=== PATIENT | female | born 1985 | race Caucasian/White ===

== ENCOUNTER → 2018-05-31 07:43 | Outpatient (CLI) | payer OTHER, SELFPAY ==
[2018-05-31 08:38] LABS: Hematocrit 41.3 % (36-46); Hemoglobin 13.6 g/dL (12.0-16.0); Mean Corpuscular HGB Conc 32.9 % (30-36); Mean Corpuscular Hemoglobin 27.3 PG (26-34); Mean Corpuscular Volume 82.9 fL (80-100); Platelet Count 285 X10^3/uL (150-400); Red Blood Cell Count 4.99 X10^6/uL (4.0-5.2); Red Cell Distribution Width 13.4 % (11.6-14.8); White Blood Cell Count 10.6 X10^3/uL (4.5-11.0)
[2018-05-31 09:00] LABS: Hemoglobin A1C% w Est Avg Glu 5.1 % (4.0-6.0)
[2018-05-31 09:17] LABS: Alanine Aminotransferase 18 IU/L (9-52); Albumin 4.3 g/dL (3.5-5.0); Albumin Globulin Ratio 1.3 (1.0-2.8); Alkaline Phosphatase 61 U/L (38-126); Aspartate Aminotransferase 17 IU/L (14-36); Bilirubin Total 0.3 mg/dL (0.2-1.3); Blood Urea Nitrogen 12 mg/dL (7-17); Carbon Dioxide 24 mmol/L (22-32); Chloride 104 mmol/L (98-107); Cholesterol 249 mg/dL (140-199); Estimated Glomerular Filt Rate > 60.0 mL/min (>60); Globulin 3.3 g/dL (1.7-4.1); Glucose 89 mg/dL (70-100); HDL Cholesterol 55 mg/dL (40-60); HEMOLYSIS < 15 (0-50); LDL Cholesterol Calculated 157 mg/dL (<100); Potassium 3.8 mmol/L (3.4-5.1); Sodium 138 mmol/L (137-145); Total Protein 7.6 g/dL (6.3-8.2); Triglycerides 184 mg/dL (35-150)
[2018-05-31 09:42] LABS: TSH w/ Reflex to FT4 1.43 uIU/mL (0.47-4.68)
== END ==
PROVIDERS: Visit Provider Nurse Practitioner Family
DX: Z00.00 Encounter for general adult medical examination without abnormal findings (principal); Z68.35 Body mass index [BMI] 35.0-35.9, adult
CPT/HCPCS: 36415; 80053; 80061; 83036; 84443; 85027

== ENCOUNTER → 2018-06-23 13:49 | Outpatient (CLI) | payer OTHER, SELFPAY ==
--- NOTE | 2018-06-27 14:42 | DIET.PN ---
Met for an initial consultation. Jonelle is interested in losing weight. Is 9 mo post and had gained to an undesirable wt prior to . Reports hx of being on statin drugs for high cholesterol. Discontinued those with [facility] and doesn't want to restart. Is hoping wt loss will help improve blood lipids. Usual Diet: 3 meals daily plus couple snacks. Tries not to eat after dinner. Tries to choose foods from all food groups. 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 Walks 3x/week: a couple times on weekdays (approx 1/2 hr) with longer walk on weekends with . Like to walk the [place]. Dx: obesity Ht: 63.5 Wt: 200# BMI: 35 Wt at delivery: 220# Wt goal: 150# Assessment: Diet appears fairly well balanced with some extras in form of snacks. Biggest obstacle appears to be not enough exercise. Intervention: Provided ed on strategies for wt loss, on portioning control using healthy plate method and importance of exercise for wt control Plan: Encouraged to increase walking with goal of approx 1/2 hour mod exercise 5 days/week. Use plate method for portioning and nutritional balance. F/U in couple weeks.
== END ==
PROVIDERS: Visit Provider Nurse Practitioner Family
DX: E66.01 Morbid (severe) obesity due to excess calories (principal)
CPT/HCPCS: 97802

== ENCOUNTER → 2018-07-07 09:56 | Outpatient (CLI) | payer OTHER, SELFPAY ==
--- NOTE | 2018-07-07 10:44 | DIET.PN ---
Met for f/u. Jonelle brought a week's worth of food records. Meals improved through the week w/fewer snacks and more well balanced meals modeling healthy plate portions. Still has more carbs/ simple carbs than desired, but has incorperated more non-starchy vegs, lean meats. Dx: Morbid obesity Wt 197# BMI 34 Assessment: Down 3# in 2 weeks. Food choices improving, though still more extras than desired. Continues to keep exercise up - approx 5x/wk. Will be facing some new challenges with moving to [place] soon. Intervention: Critiqued Jonelle's food record for better vs poorer choices. Provided education on meal planning, writing weekly menus, planning ahead which may be even more critical during their move and once settled in [place] with a longer commute to work. Plan: May call for f/u. At this time feels too busy with pending move to [facility].
== END ==
PROVIDERS: Visit Provider Nurse Practitioner Family
DX: E66.01 Morbid (severe) obesity due to excess calories (principal)
CPT/HCPCS: 97803

== ENCOUNTER → 2018-08-22 17:30 | Outpatient (CLI) | payer OTHER, SELFPAY | PROVIDERS: Visit Provider Physician Assistant | DX: R30.0 Dysuria (principal) | CPT/HCPCS: 87210 ==

== ENCOUNTER → 2018-08-30 07:19 | Outpatient (CLI) | payer OTHER, SELFPAY ==
[2018-08-30 09:06] LABS: Cholesterol 278 mg/dL (140-199); HDL Cholesterol 54 mg/dL (40-60); LDL Cholesterol Calculated 176 mg/dL (<100); Triglycerides 238 mg/dL (35-150)
== END ==
PROVIDERS: Visit Provider Nurse Practitioner Family
DX: E78.2 Mixed hyperlipidemia (principal)
CPT/HCPCS: 36415; 80061

== ENCOUNTER → 2018-11-28 08:00 | Outpatient (CLI) | payer OTHER, SELFPAY ==
[2018-11-28 10:52] LABS: Cholesterol 157 mg/dL (140-199); HDL Cholesterol 57 mg/dL (40-60); LDL Cholesterol Calculated 75 mg/dL (<100); Triglycerides 127 mg/dL (35-150)
== END ==
PROVIDERS: Visit Provider Nurse Practitioner Family
DX: E78.2 Mixed hyperlipidemia (principal)
CPT/HCPCS: 36415; 80061